=== PATIENT | male | born 1990 | race Caucasian/White ===

== ENCOUNTER → 2017-06-25 | Outpatient (CLI) | payer OTHER | LOC: GRAD 08:00 | DX: M25.561 Pain in right knee (principal); S83.411A Sprain of medial collateral ligament of right knee, initial encounter; S86.811A Strain of other muscle(s) and tendon(s) at lower leg level, right leg, initial encounter; S70.11XA Contusion of right thigh, initial encounter; M25.461 Effusion, right knee; X58.XXXA Exposure to other specified factors, initial encounter ==